=== PATIENT | male | born 1970 | race Caucasian/White ===

== ENCOUNTER 2024-06-13 07:20 | Day surgery (SDC) | payer BC ==
[2024-06-13] MEDS ORDERED: fentaNYL 100 MCG/2 ML SDV IV ONE (07:21)
[2024-06-13] MEDS ORDERED: Midazolam 1 MG/ML 2 ML SDV IV ONE (07:21)
[2024-06-13] MEDS ORDERED: Midazolam 1 MG/ML 2 ML SDV ONE (07:35)
[2024-06-13] MEDS ORDERED: fentaNYL 100 MCG/2 ML SDV ONE (07:35)
[2024-06-13] MEDS: Dextrose 5%-0.45% NaCl 1,000 ML IV SCH (07:41)
[2024-06-13] MEDS: fentaNYL 100 MCG/2 ML SDV IV ONE ×2 (08:16)
[2024-06-13] MEDS: Midazolam 1 MG/ML 2 ML SDV IV ONE ×6 (08:17→08:22)
== END 2024-06-13 09:40 | disposition home or self-care (01) ==
LOC: DL.ENDO 07:20
PROVIDERS: ATTEND Internal Medicine Gastroenterology
DX: Z12.11 Encounter for screening for malignant neoplasm of colon (principal)
CPT/HCPCS: J2250; J3010; J7799